=== PATIENT | male | born 1950 | race Two or more races ===

== ENCOUNTER 2018-02-14 07:04 | Emergency (ER) | payer MEDICARE ==
[2018-02-14 07:28] VITALS: BP 141/96
--- NOTE | 2018-02-14 07:53 | RAD ---
Examination: 3 views of the left foot HISTORY: History of left foot injury, medial side of the left foot COMPARISON: None available FINDINGS: The alignment of the metacarpophalangeal joint, interphalangeal grossly appears unremarkable. There is no acute fracture or dislocation identified. IMPRESSION: No acute osseous findings Electronically signed by: Jefferson Knowles MD (02/14/2018 7:49 AM) [facility]
[2018-02-14] MEDS ORDERED: HYDR-971 PO (08:02)
--- NOTE | 2018-02-14 08:03 | PHYS DOC ---
Past History Past Medical History: CAD, Diabetes, Hypertension Past Surgical History: Other Alcohol Use: Occasionally Drug Use: None Adult General Chief Complaint Chief Complaint: LOWER EXT PAIN HPI HPI 67-year-old male patient states he tried to walk when his left leg was falling asleep and lost his balance and twisted his left foot yesterday and since then has pain in his great toe and left foot that gradually getting worse. Patient denies focal neurodeficit and other injuries. Review of Systems Review of Systems Constitutional: Denies fever or chills [] Eyes: Denies change in visual acuity, redness, or eye pain [] HENT: Denies nasal congestion or sore throat [] Respiratory: Denies cough or shortness of breath [] Cardiovascular: No additional information not addressed in HPI [] GI: Denies abdominal pain, nausea, vomiting, bloody stools or diarrhea [] : Denies dysuria or hematuria [] Musculoskeletal: Denies back pain, reports joint pain [] Integument: Denies rash or skin lesions [] Neurologic: Denies headache, focal weakness or sensory changes [] Endocrine: Denies polyuria or polydipsia [] All other systems were reviewed and found to be within normal limits, except as documented in this note. Allergies Allergies Allergies Coded Allergies Type Severity Reaction Last Updated Verified levofloxacin Allergy Unknown 02/14/18 Yes Physical Exam Physical Exam Constitutional: Well developed, well nourished, no acute distress, non-toxic appearance. [] HENT: Normocephalic, atraumatic Eyes: PERRLA, EOMI, conjunctiva normal, no discharge. [] Neck: Normal range of motion, no tenderness, supple, no stridor. [] Cardiovascular:Heart rate regular rhythm, no murmur [] Lungs & Thorax: Bilateral breath sounds clear to auscultation [] Extremities: Left foot with mild erythema and tenderness in distal part of the first metatarsal without deformity or neurovascular deficit Neurologic: Alert and oriented X 3, normal motor function, normal sensory function, no focal deficits noted. [] Psychologic: Affect normal, judgement normal, mood normal. [] Current Patient Data Vital Signs Vital Signs Date Time Temp Pulse Resp B/P (MAP) Pulse Ox O2 Delivery O2 Flow Rate FiO2 02/14/18 07:28 20 Room Air 02/14/18 07:28 98.2 78 95 EKG EKG [] Radiology/Procedures Radiology/Procedures [][address] [address] IMAGING REPORT Signed PATIENT: BROOKLYN TRUJILLO ACCOUNT: [id number] : 1950 LOCATION: ER AGE: 67 SEX: M EXAM STATUS: PRE ER ORD. PHYSICIAN: RASHAAD OWEN MD REASON: injury PROCEDURE: FOOT LEFT 3V Examination: 3 views of the left foot HISTORY: History of left foot injury, medial side of the left foot COMPARISON: None available FINDINGS: The alignment of the metacarpophalangeal joint, interphalangeal grossly appears unremarkable. There is no acute fracture or dislocation identified. IMPRESSION: No acute osseous findings Electronically signed by: Jefferson Bui MD (02/14/2018 7:49 AM) [facility] DICTATED AND SIGNED BY: JEFFERSON BUI MD DATE: 02/14/18746 CC: PATTY GARCIA MD; RASHAAD OWEN MD ~ Course & Med Decision Making Course & Med Decision Making Pertinent Imaging studies reviewed. (See chart for details) Patient had injury to left foot without fracture. Daniel wrap was applied by [employer]. [] Dragon Disclaimer Dragon Disclaimer This electronic medical record was generated, in whole or in part, using a voice recognition dictation system. Departure Departure: Impression: Primary Impression: Sprain of left foot Disposition: 01 HOME, SELF-CARE (At 0800) Condition: STABLE Referrals: PATTY GARCIA MD (PCP) Patient Instructions: Foot Sprain Additional Instructions: Apply ice on the affected area, elevate your left foot Follow-up with your primary care physician in 3-5 days Return to ER if not getting better Scripts Hydrocodone Bit/Acetaminophen (NORCO 5-325 TABLET) 1 Each Tablet 1 TAB PO PRN Q6HRS PRN for PAIN, #14 TAB 0 Refills Prov: RASHAAD OWEN MD 02/14/18 RASHAAD OWEN MD Feb 14, 2018 08:02
== END 2018-02-14 08:00 | disposition home or self-care (01) ==
LOC: ER 07:04
DX: S93.602A Unspecified sprain of left foot, initial encounter (principal); I25.10 Atherosclerotic heart disease of native coronary artery without angina pectoris; E11.9 Type 2 diabetes mellitus without complications; I10 Essential (primary) hypertension; Z88.1 Allergy status to other antibiotic agents; X50.1XXA Overexertion from prolonged static or awkward postures, initial encounter; Y93.89 Activity, other specified; Y99.8 Other external cause status; Y92.89 Other specified places as the place of occurrence of the external cause
CPT/HCPCS: 73630; 99284